=== PATIENT | male | born 1995 | race African-American/Black ===

== ENCOUNTER 2016-12-21 07:44 | Emergency (ER) | payer MEDICAID ==
[~2016-12-21] VITALS: Ht 193 cm; Wt 78.3 kg
[2016-12-21] MEDS ORDERED: FAMOTIDINE 20MG/2ML VIAL IV STA (08:14)
[2016-12-21] MEDS ORDERED: MORPHINE SULFATE 4 MG/ML CPJ (NOT FOR IM USE) IV STA (08:14)
[2016-12-21] MEDS ORDERED: SODIUM CHLORIDE 0.9% 1,000 ML IV ONE (08:14)
[2016-12-21] MEDS ORDERED: ONDANSETRON HCL 4MG/2ML VIAL IV ONE (08:15)
[2016-12-21 08:30] LABS: BASOPHILS % 0.7 % (0.0-2.0); EOSINOPHILS % 2.9 % (0.0-5.0); HEMATOCRIT. 50.8 % (42.0-52.0); HEMOGLOBIN. 17.9 g/dL (14.0-18.0); LYMPHOCYTES % 25.7 % (20.0-50.0); MEAN CORPUSCULAR HEMOGLOBIN 32.1 pg (28.0-32.0); MEAN CORPUSCULAR VOLUME 91.4 fL (80.0-94.0); MEAN PLATELET VOLUME 8.3 fl (7.4-10.4); MONOCYTES % 9.3 % (2.0-8.0); NEUTROPHILS % 61.4 % (40.0-76.0); PLATELET 278 x1000/uL (130-400); RED BLOOD CELL COUNT 5.56 mill/uL (4.7-6.1); RED CELL DISTRIBUTION WIDTH 13.6 % (11.6-14.6)
[2016-12-21 08:45] LABS: CARBON DIOXIDE 26 mEq/L (21-32); CHLORIDE 100 mEq/L (98-107)
[2016-12-21 10:59] LABS: CLARITY URINE CLEAR (CLEAR); COLOR URINE YELLOW (YELLOW); GLUCOSE URINE NEGATIVE (NEGATIVE); KETONES URINE TRACE (NEGATIVE); LEUKOCYTE ESTERASE URINE NEGATIVE (NEGATIVE); NITRITE URINE NEGATIVE (NEGATIVE); OCCULT BLOOD URINE TRACE (NEGATIVE); PROTEIN URINE NEGATIVE (NEGATIVE); SPECIFIC GRAVITY URINE 1.025 (1.005-1.030); UROBILINOGEN URINE 0.2 E.U./dL (0.2-1.0)
[2016-12-21] MEDS ORDERED: IOHEXOL-300 100 ML BOTTLE ONE (12:51)
[2016-12-21 13:45] VITALS: BP 110/70
== END 2016-12-21 13:46 | disposition home or self-care (01) ==
LOC: ER 08:09
DX: A08.4 Viral intestinal infection, unspecified (principal)
CPT/HCPCS: 36415; 74177; 80053; 81001; 83690; 85025; 96361; 96374; 96375; 99285; J2270; J2405; J3490; J7030; Q9967; Z7610

== ENCOUNTER 2017-04-12 20:54 | Emergency (ER) | payer MEDICAID ==
[~2017-04-12] VITALS: Ht 193 cm; Wt 88.0 kg
[2017-04-12] MEDS ORDERED: SODIUM CHLORIDE 0.9% 1,000 ML IV ONE (23:32)
[2017-04-12] MEDS ORDERED: ONDANSETRON HCL 4MG/2ML VIAL IV STA (23:32)
[2017-04-12] MEDS ORDERED: KETOROLAC 30MG/ML VIAL IV STA (23:32)
[2017-04-12] MEDS ORDERED: FAMOTIDINE 20MG/2ML VIAL IV ONE (23:45)
[2017-04-13 00:28] LABS: BASOPHILS % 0.7 % (0.0-2.0); HEMATOCRIT. 49.2 % (42.0-52.0); HEMOGLOBIN. 17.2 g/dL (14.0-18.0); LYMPHOCYTES % 11.3 % (20.0-50.0); MEAN CORPUSCULAR HEMOGLOBIN 32.4 pg (28.0-32.0); MEAN CORPUSCULAR VOLUME 92.4 fL (80.0-94.0); MEAN PLATELET VOLUME 8.5 fl (7.4-10.4); PLATELET 284 x1000/uL (130-400); RED BLOOD CELL COUNT 5.32 mill/uL (4.7-6.1); RED CELL DISTRIBUTION WIDTH 13.6 % (11.6-14.6)
[2017-04-13 00:32] LABS: CHLORIDE 108 mEq/L (98-107)
[2017-04-13 00:44] LABS: CLARITY URINE CLEAR (CLEAR); COLOR URINE DARK YELLOW (YELLOW); KETONES URINE 1+ (NEGATIVE); LEUKOCYTE ESTERASE URINE TRACE (NEGATIVE); NITRITE URINE NEGATIVE (NEGATIVE); OCCULT BLOOD URINE TRACE (NEGATIVE); PH URINE >=9.0 (4.5-8.0); PROTEIN URINE 3+ (NEGATIVE); SPECIFIC GRAVITY URINE 1.032 (1.005-1.030)
[2017-04-13 01:54] VITALS: BP 139/82
== END 2017-04-13 01:56 | disposition home or self-care (01) ==
LOC: ER 22:06
DX: R10.84 Generalized abdominal pain (principal); R11.2 Nausea with vomiting, unspecified
CPT/HCPCS: 36415; 80053; 81003; 83690; 85025; 96361; 96374; 96375; 99284; J1885; J2405; J3490; J7030; Z7610

== ENCOUNTER 2021-06-27 18:44 | Emergency (ER) | payer MEDICAID ==
[~2021-06-27] VITALS: Ht 177.8 cm; Wt 85.0 kg
[2021-06-27] MEDS ORDERED: KETOROLAC 60MG/2ML VIAL IM ONE (21:45)
[2021-06-27] MEDS ORDERED: LIDO1ADH23 TP (22:58)
[2021-06-27] MEDS ORDERED: TOPUD PO (22:58)
[2021-06-27] MEDS ORDERED: METH-653 MT (22:58)
[2021-06-27] MEDS ORDERED: IBUP-2028 MT (22:58)
[2021-06-27 23:00] VITALS: BP 129/76
== END 2021-06-27 22:41 | disposition home or self-care (01) ==
LOC: ER 18:44
DX: M54.9 Dorsalgia, unspecified (principal); M25.552 Pain in left hip; V43.52XA Car driver injured in collision with other type car in traffic accident, initial encounter; Y93.89 Activity, other specified; Y92.410 Unspecified street and highway as the place of occurrence of the external cause
CPT/HCPCS: 72070; 96372; 99283; J1885